=== PATIENT | female | born 1985 | race Caucasian/White ===

== ENCOUNTER 2020-11-09 19:40 | Inpatient (IN) | payer BC ==
[~2020-11-09] VITALS: Ht 172.7 cm; Wt 82.7 kg
[2020-11-09] MEDS ORDERED: ZINC (20:10)
[2020-11-09] MEDS ORDERED: NOVOLOG (20:10)
[2020-11-09] MEDS ORDERED: CREON (20:10)
[2020-11-09] MEDS ORDERED: VITAMIN D3 (20:10)
[2020-11-09] MEDS ORDERED: PREVACID (20:10)
[2020-11-09] MEDS ORDERED: LANTUS (20:10)
[2020-11-09 20:31] LABS: MICROSCOPIC AUTO
[2020-11-09 20:56] LABS: PH, VENOUS 7.101 pH (7.320-7.420)
[2020-11-09 20:58] LABS: BASOPHILS % (AUTO) 0 % (0-1); EOSINOPHILS % (AUTO) 0 % (1-7); LYMPHOCYTES % (AUTO) 13 % (22-44); MD NO; MEAN CORPUSCULAR HEMOGLOBIN 33.4 pg (27.0-34.8); MEAN CORPUSCULAR HGB CONC 33.2 g/dL (32.4-35.8); MEAN PLATELET VOLUME 7.3 fL (7.4-10.4); MONOCYTES % (AUTO) 7 % (2-9); NEUTROPHILS % (AUTO) 80 % (42-75); PLATELET COUNT 262 x10^3/uL (130-400); RED BLOOD COUNT 4.07 x10^6/uL (3.82-5.3); RED CELL DISTRIBUTION WIDTH 14.2 % (9.6-15.2)
[2020-11-09] MEDS ORDERED: REGULAR INSULIN 100 UNITS in SODIUM CHLORIDE 0.9% 99 ML IV SCH (20:58)
--- NOTE | 2020-11-09 21:05 | NUR ---
PT WENT INTO ER [place] WITH [place] N/V X2 DAYS. PT STATED "SHE RAN OUT OF TEST STRIPS AND DID NOT TAKE HER SUGAR FOR A COUPLE DAYS. PT AT ER HAD BLOOD SUGAR OVER 400 PER EMS. PT RECIEVED ZOFRAN 8MG, MS 8MG, LORAZAPAM 2MG, SODIUM BICAB 200ME, NS 1X L, NS W/ KCL 20MEQ 1.5L AND INSULIN PRIRIOR TO [facility] ER PER EMS.
--- NOTE | 2020-11-09 21:07 | NUR ---
PT RESTING IN BED, PT ON MONITOR WITH PT VSS.
[2020-11-09 21:15] LABS: ALANINE AMINOTRANSFERASE 30 U/L (12-78); ALBUMIN 3.7 g/dL (3.4-5.0); ANION GAP 22 mmol/L (5-15); CALCIUM 7.6 mg/dL (8.5-10.1); CHLORIDE 109 mmol/L (98-107); CREATININE 0.87 mg/dL (0.55-1.02)
[2020-11-09 21:17] LABS: ALKALINE PHOSPHATASE 148 U/L (45-117); BILIRUBIN,TOTAL 0.5 mg/dL (0.2-1.0); TOTAL PROTEIN 7.1 g/dL (6.4-8.2)
[2020-11-09] MEDS ORDERED: MORPHINE SULFATE 4 MG/ML, 1ML IVPush PRN (21:30)
[2020-11-09 21:44] LABS: ACETONE, SERUM Large (80mg/dL) (Negative)
[2020-11-09] MEDS ORDERED: MORPHINE SULFATE 4 MG/ML, 1ML ONE (21:47)
--- NOTE | 2020-11-09 22:15 | NUR ---
PT RESTING IN BED, PT A/O X4. PT MEDICATED PER MAR. PT VSS
[2020-11-09] MEDS ORDERED: SODIUM CHLORIDE 0.9% 1,000 ML IV SCH (22:30)
[2020-11-09] MEDS ORDERED: D5%-0.45NACL+KCL 20MEQ 1,000 ML IV SCH (22:30)
[2020-11-09] MEDS ORDERED: LABETALOL 5MG/ML, 20ML IVPush PRN (22:30)
[2020-11-09] MEDS ORDERED: ONDANSETRON 2MG/ML, 2ML IV PRN (22:30)
[2020-11-09] MEDS ORDERED: REGULAR INSULIN 100 UNITS in SODIUM CHLORIDE 0.9% 99 ML IV PRN (22:30)
[2020-11-09] MEDS ORDERED: ACETAMINOPHEN 325 MG TABLET PO PRN (22:30)
--- NOTE | 2020-11-09 22:43 | NUR ---
PT B/S 206 VIA GLUCOMETER
--- NOTE | 2020-11-09 23:00 | NUR ---
REPORT FROM BINTA SANTOS
--- NOTE | 2020-11-09 23:01 | NUR ---
MED REQ TUBED TO LAB
--- NOTE | 2020-11-09 23:08 | NUR ---
DANIELLE GAVE REPORT TO BINTA ALONSO
[2020-11-09 23:10] LABS: ANION GAP 24 mmol/L (5-15); CALCIUM 7.6 mg/dL (8.5-10.1); CHLORIDE 108 mmol/L (98-107)
[2020-11-09] MEDS: D5%-0.45NACL+KCL 20MEQ 1,000 ML IV SCH (23:20)
[2020-11-10] MEDS ORDERED: LACTATED RINGERS 1,000 ML IVBOLUS ONE (00:30)
[2020-11-10] MEDS: HYDROcodone/APAP 5/325 TABLET PO PRN ×3 (03:03→20:48)
[2020-11-10 04:48] LABS: ANION GAP 10 mmol/L (5-15); CALCIUM 7.8 mg/dL (8.5-10.1); CHLORIDE 108 mmol/L (98-107)
[2020-11-10 04:49] LABS: CREATININE 0.79 mg/dL (0.55-1.02)
[2020-11-10] MEDS ORDERED: PANTOPRAZOLE 40MG TABLET PO SCH (07:30)
[2020-11-10] MEDS: D5%-0.45NACL+KCL 20MEQ 1,000 ML IV SCH ×2 (07:40→14:30)
[2020-11-10] MEDS: INSULIN GLARGINE 100 UNITS/ML, PEN SQ-INSULIN SCH ×2 (08:43→09:00)
[2020-11-10] MEDS ORDERED: DEXTROSE 50%, 50ML SYRINGE IVPush PRN (09:30)
[2020-11-10] MEDS ORDERED: CALCIUM CARBONATE 500 MG TABLET PO SCH (09:30)
[2020-11-10] MEDS ORDERED: DEXTROSE 4 GM TAB.CHEW PO PRN (09:30)
[2020-11-10] MEDS ORDERED: GLUCAGON 1 MG IM PRN (09:30)
[2020-11-10] MEDS ORDERED: SODIUM CHLORIDE 0.9% 1,000ML IVBOLUS ONE (10:30)
[2020-11-10] MEDS: SODIUM CHLORIDE 0.9% 1,000 ML IV SCH ×2 (10:56→20:48)
[2020-11-10] MEDS: AZITHROMYCIN 500 MG TABLET PO SCH (10:56)
[2020-11-10] MEDS: POTASSIUM ACID PHOSPHATE 500 MG TABLET.SOL PO SCH ×3 (10:56→23:16)
[2020-11-10] MEDS: ENOXAPARIN 40 MG/0.4 ML SQ SCH (10:56)
[2020-11-10] MEDS: CALCIUM CARBONATE 500 MG TABLET PO SCH ×2 (10:57→20:48)
[2020-11-10] MEDS: INSULIN LISPRO 100 UNITS/ML, PEN SQ-INSULIN SCH ×3 (11:13→20:51)
[2020-11-10] MEDS: SODIUM CHLORIDE FLUSH 10ML SYR IVF SCH (20:51)
[2020-11-10] MEDS ORDERED: INSULIN GLARGINE 100 UNITS/ML, PEN SQ-INSULIN ONE (21:00)
[2020-11-11] MEDS: HYDROcodone/APAP 5/325 TABLET PO PRN ×3 (04:29→17:54)
[2020-11-11 05:21] LABS: CHLORIDE 108 mmol/L (98-107)
[2020-11-11 05:32] LABS: BASOPHILS % (AUTO) 1 % (0-1); EOSINOPHILS % (AUTO) 2 % (1-7); LYMPHOCYTES % (AUTO) 37 % (22-44); MEAN CORPUSCULAR HGB CONC 35.1 g/dL (32.4-35.8); MEAN PLATELET VOLUME 7.3 fL (7.4-10.4); MONOCYTES % (AUTO) 9 % (2-9); NEUTROPHILS % (AUTO) 51 % (42-75); PLATELET COUNT 138 x10^3/uL (130-400); RED CELL DISTRIBUTION WIDTH 14.3 % (9.6-15.2)
[2020-11-11 05:46] LABS: MD NO
[2020-11-11 05:57] LABS: ALANINE AMINOTRANSFERASE 19 U/L (12-78); ALBUMIN 2.7 g/dL (3.4-5.0); ALKALINE PHOSPHATASE 99 U/L (45-117); ANION GAP 9 mmol/L (5-15); BILIRUBIN,TOTAL 0.2 mg/dL (0.2-1.0); CALCIUM 8.3 mg/dL (8.5-10.1); CREATININE 0.55 mg/dL (0.55-1.02); TOTAL PROTEIN 5.4 g/dL (6.4-8.2)
[2020-11-11] MEDS: SODIUM CHLORIDE 0.9% 1,000 ML IV SCH (06:16)
[2020-11-11] MEDS: INSULIN LISPRO 100 UNITS/ML, PEN SQ-INSULIN SCH ×4 (08:12→21:05)
[2020-11-11] MEDS: INSULIN GLARGINE 100 UNITS/ML, PEN SQ-INSULIN SCH (09:45)
[2020-11-11] MEDS: ENOXAPARIN 40 MG/0.4 ML SQ SCH (09:46)
[2020-11-11] MEDS: SODIUM CHLORIDE FLUSH 10ML SYR IVF SCH ×2 (09:47→21:05)
[2020-11-11] MEDS: AZITHROMYCIN 500 MG TABLET PO SCH (09:47)
[2020-11-11] MEDS: CALCIUM CARBONATE 500 MG TABLET PO SCH ×2 (09:47→21:04)
[2020-11-11] MEDS ORDERED: POTASSIUM CHLORIDE 20 MEQ TAB.ER.PRT PO ONE (12:30)
[2020-11-11] MEDS ORDERED: INSULIN GLARGINE 100 UNITS/ML, PEN SQ-INSULIN ONE (12:30)
[2020-11-11] MEDS ORDERED: MAGNESIUM SULFATE PMX 2GM/50ML 50 ML IV ONE (13:00)
[2020-11-11] MEDS: POTASSIUM ACID PHOSPHATE 500 MG TABLET.SOL PO SCH ×2 (13:15→18:41)
[2020-11-11] MEDS: LIPASE/PROTEASE/AMYLASE TAB PO SCH (16:22)
[2020-11-12 00:29] VITALS: BP 111/79
[2020-11-12] MEDS: POTASSIUM ACID PHOSPHATE 500 MG TABLET.SOL PO SCH ×2 (01:14→05:50)
[2020-11-12] MEDS: HYDROcodone/APAP 5/325 TABLET PO PRN ×3 (01:15→17:40)
[2020-11-12 05:02] LABS: BASOPHILS % (AUTO) 1 % (0-1); EOSINOPHILS % (AUTO) 2 % (1-7); LYMPHOCYTES % (AUTO) 51 % (22-44); MEAN CORPUSCULAR HEMOGLOBIN 33.7 pg (27.0-34.8); MEAN CORPUSCULAR HGB CONC 34.9 g/dL (32.4-35.8); MEAN PLATELET VOLUME 7.4 fL (7.4-10.4); MONOCYTES % (AUTO) 12 % (2-9); NEUTROPHILS % (AUTO) 34 % (42-75); PLATELET COUNT 156 x10^3/uL (130-400); RED BLOOD COUNT 3.66 x10^6/uL (3.82-5.3); RED CELL DISTRIBUTION WIDTH 14.3 % (9.6-15.2)
[2020-11-12 05:05] LABS: ANION GAP 7 mmol/L (5-15); CALCIUM 8.6 mg/dL (8.5-10.1); CHLORIDE 108 mmol/L (98-107)
[2020-11-12 05:08] LABS: CREATININE 0.41 mg/dL (0.55-1.02)
[2020-11-12 05:11] LABS: MD NO
[2020-11-12] MEDS: POTASSIUM CHLORIDE 20 MEQ TAB.ER.PRT PO SCH ×3 (06:47→17:40)
[2020-11-12] MEDS: LIPASE/PROTEASE/AMYLASE TAB PO SCH ×3 (06:47→16:15)
[2020-11-12] MEDS: INSULIN LISPRO 100 UNITS/ML, PEN SQ-INSULIN SCH ×3 (08:00→16:19)
[2020-11-12] MEDS: AZITHROMYCIN 500 MG TABLET PO SCH (08:00)
[2020-11-12] MEDS: CALCIUM CARBONATE 500 MG TABLET PO SCH (08:00)
[2020-11-12] MEDS: SODIUM CHLORIDE FLUSH 10ML SYR IVF SCH (08:01)
[2020-11-12 08:20] VITALS: BP 121/87
[2020-11-12] MEDS ORDERED: MAGNESIUM OXIDE 400 MG TABLET PO SCH (09:00)
[2020-11-12] MEDS ORDERED: INSULIN GLARGINE 100 UNITS/ML, PEN SQ-INSULIN SCH (09:00)
[2020-11-12] MEDS: ENOXAPARIN 40 MG/0.4 ML SQ SCH (10:12)
[2020-11-12 13:42] VITALS: BP 134/93
[2020-11-12] MEDS ORDERED: AZIT500T10 PO (17:59)
[2020-11-12 19:37] VITALS: BP 117/83
== END 2020-11-12 21:00 | disposition home or self-care (01) | DRG 871 ==
LOC: ED 21:44 → EDIP 21:59 → CCU 23:32 → 3N 11-10 18:34
PROVIDERS: ADMIT Family Medicine; ATTEND Internal Medicine
DX: A41.9 Sepsis, unspecified organism (principal); J18.9 Pneumonia, unspecified organism; E10.10 Type 1 diabetes mellitus with ketoacidosis without coma; K86.1 Other chronic pancreatitis; D75.89 Other specified diseases of blood and blood-forming organs; E83.51 Hypocalcemia; K21.9 Gastro-esophageal reflux disease without esophagitis; K59.00 Constipation, unspecified; E83.39 Other disorders of phosphorus metabolism; E83.42 Hypomagnesemia; Z90.49 Acquired absence of other specified parts of digestive tract; Z91.19 Patient's noncompliance with other medical treatment and regimen; Z88.2 Allergy status to sulfonamides; Z91.030 Bee allergy status; Z88.5 Allergy status to narcotic agent
CPT/HCPCS: 36415; 71045; 80048; 80053; 81001; 82010; 82607; 82803; 82962; 83036; 83605; 83690; 83735; 84100; 84132; 84443; 84703; 85025; 87040; 87081; 93005; 96374; 99291; G0378; J1650; J1815; J2270; J3475; J3480; J7030; J7120